=== PATIENT | male | born 1975 | race Asian ===

== ENCOUNTER 2019-07-30 09:34 | Emergency (ER) | payer MEDICAID ==
[~2019-07-30] VITALS: Ht 177.8 cm; Wt 79.4 kg
[2019-07-30 09:41] VITALS: BP_SYST 125
[2019-07-30 10:00] VITALS: BP_SYST 125
== END 2019-07-30 09:55 | disposition left against medical advice (07) ==
LOC: SED 09:34
DX: F41.9 Anxiety disorder, unspecified (principal); Z53.21 Procedure and treatment not carried out due to patient leaving prior to being seen by health care provider
CPT/HCPCS: 99283